=== PATIENT | male | born 1970 | race Caucasian/White ===

== ENCOUNTER 2021-07-07 12:49 | Emergency (ER) | payer OTHER ==
[~2021-07-07] VITALS: Ht 177.8 cm; Wt 96.7 kg
--- NOTE | 2021-07-07 13:00 | NUR ---
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
--- NOTE | 2021-07-07 13:13 | NUR ---
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
--- NOTE | 2021-07-07 13:35 | NUR ---
TASK RN: PT. TO ED WITH C/O SYNOPY X 2 IN THE LAST 2 DAYS. "MY VISION GOES BLURRY, THEN IT GOES BLACK AND I WAKE UP ON THE FLOOR." PT. DENIES ANY INJURIES. NO OBVIOUS TRAUMA NOTED. NO MIDLINE NECK PAIN. PT. AMBULATORY WITH STEADY GAIT. IN ROOM WHILE GETTING DRESSED. DR. BARILLAS IN TO EVAL AND DISCUSS POC. PT. STATES THIS HAS BEEN AN ISSUE FOR HIM OFF/ON X 10 YEARS AND "[facility] AND THEY CAN'T FIND OUT WHAT IS WRONG SO I AM SEEKING CARE ELSEWHERE". ALL MONITORS PLACED. NSR NOTED ON MONITOR. REPORT TO PRATIK SANCHEZ TO ASSUME CARE OF PT.
[2021-07-07 14:05] LABS: BASOPHILS % (AUTO) 0 % (0-1); EOSINOPHILS % (AUTO) 3 % (1-7); LYMPHOCYTES % (AUTO) 24 % (22-44); MEAN CORPUSCULAR HEMOGLOBIN 32.9 pg (27.5-34.5); MEAN CORPUSCULAR HGB CONC 34.6 g/dL (33.2-36.2); MONOCYTES % (AUTO) 9 % (2-9); NEUTROPHILS % (AUTO) 63 % (42-75); PLATELET COUNT 213 x10^3/uL (130-400); RED CELL DISTRIBUTION WIDTH 13.1 % (9.4-14.8)
[2021-07-07 14:19] LABS: ANION GAP 5 mmol/L (5-15); CALCIUM 9.1 mg/dL (8.5-10.1); CHLORIDE 105 mmol/L (98-107)
[2021-07-07 14:20] LABS: ALANINE AMINOTRANSFERASE 33 U/L (12-78); ALBUMIN 3.6 g/dL (3.4-5.0); ALKALINE PHOSPHATASE 54 U/L (45-117); BILIRUBIN,TOTAL 0.7 mg/dL (0.2-1.0); CREATININE 1.11 mg/dL (0.7-1.3); TOTAL PROTEIN 7.4 g/dL (6.4-8.2); TROPONIN I < 0.015 ng/mL (0.000-0.045)
[2021-07-07 15:15] VITALS: BP 101/60
--- NOTE | 2021-07-07 15:26 | NUR ---
PT REC'VD DISCHARGE INSTRUCTIONS AND EDUCATION. PT HAD NO FURTHER QUESTIONS. PT AMBULATED TO DC AREA, STEADY GAIT.
== END 2021-07-07 15:49 | disposition home or self-care (01) ==
LOC: ED 13:49
DX: F51.04 Psychophysiologic insomnia (principal); R51.9 Headache, unspecified; R06.02 Shortness of breath; F17.200 Nicotine dependence, unspecified, uncomplicated
CPT/HCPCS: 36415; 70450; 71045; 80053; 84484; 85025; 93005; 99285